=== PATIENT | male | born 1935 | race Caucasian/White ===

== ENCOUNTER 2024-01-12 13:55 | Outpatient (OUT) | payer MEDICARE, SELFPAY ==
--- NOTE | 2024-01-12 14:11 | XR_ITS ---
The [address] [address] Patient Name: ELMA NAYAK MRN: [id number] date: 1935 Sex: M Assigned Patient Location: [facility] Current Patient Location: Accession/Order Number: [id number] Exam Date: 01/12/2024 14:20 Report Date: 01/13/2024 06:43 At the request of: DAVID ZAPATA Procedure: XR knee RODOLFO 3V PROCEDURE: XR knee RODOLFO 3V HISTORY: Knee Osteoarthritis ; bilateral knee pain; no known injury COMPARISON: None. FINDINGS: BONES:Slight narrowing of the joint spaces bilaterally, slightly greater involving the medial joint spaces. Small periarticular degenerative osteophytes along the medial articular margin of the right knee. No fracture, dislocation, bone lesion. SOFT TISSUES:No visible soft tissue swelling. EFFUSION:Suspect small joint effusion on the right. OTHER: Negative. XR/XR knee RODOLFO 3V IMPRESSION: 1. No acute bone abnormality. 2. Mild degenerative changes bilaterally, right slightly greater than left. Electronically authenticated by: PIETRO PATEL Date: 01/13/2024 06:43
== END 2024-01-12 13:56 | disposition home or self-care (01) ==
LOC: RAD 14:00
PROVIDERS: PCP Family Medicine; Visit Provider Family Medicine
DX: M17.9 Osteoarthritis of knee, unspecified (principal)
CPT/HCPCS: 73562

== ENCOUNTER 2024-03-13 09:56 | Outpatient (OUT) | payer MEDICARE, SELFPAY ==
--- OUTSIDE RECORDS SUMMARY | 2024-03-13 10:06 | XMS_ITS | CCD ---
Author Organization [facility] Care Team Providers Care Manager Of Compensation Name Role Phone AVTAR, DR PALENCIA Admitting Unavailable VALONE, DR PALENCIA Attending Unavailable VALONE, DR PALENCIA Primary Care Unavailable VALONE, DR PALENCIA Consulting Unavailable REQUEST, DR ACEVES LISTED Admitting Unavaila ble REQUEST, DR ACEVES LISTED Attending Unavaila MAKENNA Almanza Consulting Unavailable REQUEST, DR ACEVES LISTED Admitting Unavaila ble REQUEST, DR ACEVES LISTED Attending Unavaila MAKENNA Almanza Consulting Unavailable VALONE, DR PALENCIA Admitting Unavailable VALONE, DR PALENCIA Attending Unavailable PIETRO COWART Attending Unavailable RUSPIETRO COBB Attending Unavailable Allergies Allergy Classification Reported Allergen(s) Allergy Type Date of Onset Reaction(s) Facility (2 sources) Penicillins Drug allergy (disorder) 05-02-2014 [facility] Repository (2 sources) Sulfonamides (Antibiotic) Drug allergy (disorder) 05-02-2014 [facility] Repository Problems Problem Classification Problem Date Documented Da te Episodic/Chronic Genitourinary symptoms and ill-defined conditions (4 sources) Other microscopic hematuria; Translations: [OTHER MICROSCOPIC HEMATURIA] Onset: 04-28-2021 Episodic Results Test Name Value Interpretation Reference Range Dolly Carlson 06-04-2021 BLADDER CANCER FISH FINDINGS Comment Normal [facility] Comment on above: Result Comment: Nega tive UroVysion Result Fluorescence in situ hybridization (FISH) of cells recovered from urine was performed using the [employer] UroVysion Kit. A minimum of twenty-five cells was examined, and an abnormal signal pattern was not detected, indicating a NEGATIVE result. The performance characteristics of this test have been validated by [employer]. A positive result is the detection of four or more cells with greater than two signals for at least two chromosomes (3, and/or 7, and/or 17) and/or twelve or more cells with no signal for chromosome 9. Probes: 3cen(D3Z1), 7cen(D7Z1), 9p21(p16), 17cen(D17Z1) Performed By: #### F ISHUV #### [facility] [address] [place] [address] Dr. Erin Bay CLINICAL DATA Comment Normal [facility] Comment on above: Result Comment: No c linical data specified Performed By: #### F ISHUV #### [facility] [address] [place] [address] Dr. Erin Bay CPT CODES Comment Normal [facility] Comment on above: Result Comment: 8812 0 Performed By: #### F ISHUV #### [facility] [address] [place] [address] Dr. Erin Bay ELECTRONICALLY SIGNED Comment Normal [facility] Comment on above: Result Comment: Ramon Hampton M.D. Performed By: #### F ISHUV #### [facility] [address] [place] [address] Dr. Erin Bay SPECIMEN DESCRIPTION Comment Normal [facility] Comment on above: Result Comment: Rece ived is 90ml of yellow, clear, preserved urine. Performed By: #### F ISHUV #### [facility] [address] [place] [address] Dr. Erin Bay Specimen type Nom (Spec) Comment Normal [facility] Comment on above: Result Comment: Unsp ecified Collection Method Performed By: #### F ISHUV #### [facility] [address] [place] [address] Dr. Erin Bay Encounters Encounter Date Encounter Type Care Provider Facility Start: 02-07-2024 End: 02-07-2024 ambulatory PIETRO COWART Not Available Start: 08-31-2023 End: 08-31-2023 ambulatory PIETRO COWART Not Available Start: 04-28-2021 End: 04-29-[address] TALHA NOVA Facility:H1 Start: 02-18-[address] TALHA NOVA [facility] ity:H1 Start: 11-06-2020 End: 11-07-[address] ACEVES LISTED REQUEST Facility:H1 Start: 10-06-2020 End: 10-07-[address] NONE LISTED REQUEST Facility:H1 Payers Date Payer Category Payer Self-pay 1958 Unknown [id number] 1935 Unknown [id number] 2.16.84 [id number] 1935 Unknown [id number] 2.16.84 [id number] 1935 Unknown [id number] 2.16.84 [id number] 1935 Unknown [id number] 2.16.840 .[id number] Unknown [id number] 2.16.84 [id number] Unknown [id number] 2.16.84 [id number] Summary Purpose Family History No Family History Records FoundNo Family History Records Found Advance Directives No Advanced Directives Records FoundNo Advanced Directives Records Found Additional Source Comments (unrecognized sect ion and content) No Status Records FoundNo Status Records Found INFORMATION SOURCE (unrecogn ized section and content) DATE CREATED AUTHOR 06/13/2021 [facility] DATE CREATED AUTHOR AUTHOR'S BRYAN SHEPARD 02/09/2024 [facility] d[facility] Specialists EPIC FOR RECORDS PERTAINING TO PATIENTS WHO ARE OR HAVE BEEN ENROLLED IN A CHEMICAL DEPENDENCY/SUBSTANCEABUSE PROGRAM, SOME INFORMATION MAY BE OMITTED. This clinical summary was aggregated from multiple sources. Caution should be exercised in using it in the provision of clinical care. This summary normalizes information from multiple sources, and as a consequence, information in this document may materially change the coding, format and clinical context of patient data. In addition, data may be omitted in some cases. CLINICAL DECISIONS SHOULD BE BASED ON THE PRIMARY CLINICAL RECORDS. [facility] [employer] provides no warranty or guarantee of the accuracy or completeness of information in this document.
[2024-03-13 10:21] LABS: Basophils Absolute Auto 0.1 10^3/uL (0.0-0.1); Basophils Percent Auto 0.9 % (0.2-2.0); Eosinophils Absolute Auto 0.2 10^3/uL (0.0-0.7); Hematocrit 44.7 % (42.0-54.0); Hemoglobin 14.9 g/dL (14.0-18.0); Immature Granulocytes Abs Auto 0.04 10^3/uL (0.00-0.03); Immature Granulocytes Pct Auto 0.6 % (0.0-0.5); Lymphocytes Absolute Auto 2.2 10^3/uL (1.2-3.8); Lymphocytes Percent Auto 31.3 % (20.5-60.0); Mean Corpuscular HGB Conc 33.3 g/dL (29.9-35.2); Mean Corpuscular Hemoglobin 31.7 pg (25.9-34.0); Mean Corpuscular Volume 95.1 fL (80.0-94.0); Mean Platelet Volume 8.3 fL (9.5-13.5); Monocytes Absolute Auto 0.9 10^3/uL (0.3-0.8); Monocytes Percent Auto 12.9 % (1.7-12.0); Neutrophils Absolute Auto 3.6 10^3/uL (1.4-6.5); Neutrophils Percent Auto 51.3 % (43.0-75.0); Platelet Count 275 10^3/uL (150-450); Red Cell Distribution Width 12.6 % (11.0-15.0); White Blood Count 6.9 10^3/uL (4.0-11.0)
[2024-03-13 10:47] LABS: Estimated Average Glucose 123 mg/dL; Glycohemoglobin A1C 5.9 % (4.5-6.2)
[2024-03-13 11:29] LABS: Alanine Aminotransferase 24 U/L (16-63); Albumin Level 3.5 g/dL (3.4-5.0); Alkaline Phosphatase 53 U/L (46-116); Anion Gap 12.9; Aspartate Amino Transferase 15 U/L (15-37); BUN Creatinine Ratio 32.8; Bilirubin Total 0.6 mg/dL (0.2-1.0); Calcium 8.6 mg/dL (8.5-10.1); Carbon Dioxide 30.6 mmol/L (21.0-32.0); Chloride 94 mmol/L (98-107); Chol HDL Ratio 2.6; Cholesterol 133 mg/dL (<=200); Estimated GFR (African America >60 (>=60); Estimated GFR (Non-African Ame >60 (>=60); Free T3 2.75 pg/mL (2.18-3.98); Globulin 3.5 g/dL; Glucose 123 mg/dL (74-106); HDL Cholesterol 51 mg/dL (40-60); Potassium 4.5 mmol/L (3.5-5.1); Sodium 133 mmol/L (136-145); Thyroid Stimulating Hormone 2.245 uIU/mL (0.358-3.740); Triglycerides 115 mg/dL (<=150)
[2024-03-13 11:31] LABS: Free T4 0.92 ng/dL (0.76-1.46)
[2024-03-14 04:08] LABS: PSA, Free 0.06 ng/mL; Prostate Specific Ag 0.3 ng/mL (0.0-4.0)
== END 2024-03-13 09:57 | disposition home or self-care (01) ==
LOC: LAB 09:57
PROVIDERS: PCP Family Medicine; Visit Provider Family Medicine
DX: Z00.00 Encounter for general adult medical examination without abnormal findings (principal); E78.5 Hyperlipidemia, unspecified; Z12.11 Encounter for screening for malignant neoplasm of colon; R53.83 Other fatigue; I10 Essential (primary) hypertension; Z79.899 Other long term (current) drug therapy; Z12.5 Encounter for screening for malignant neoplasm of prostate; D64.9 Anemia, unspecified; R73.09 Other abnormal glucose
CPT/HCPCS: 36415; 80053; 80061; 83036; 84153; 84154; 84439; 84443; 84481; 85025

== ENCOUNTER 2024-03-16 16:30 | Outpatient (OUT) | payer MEDICARE, SELFPAY ==
--- OUTSIDE RECORDS SUMMARY | 2024-03-16 16:34 | XMS_ITS ---
Patient Summarization (C-CDA 2.1 CCD) Created on: March 16, 2024 Harley SMART : 1935 Sex: Male Author Organization Sample organization Care Team Providers Care Aircraft Dispatcher Name Role Phone AVTAR, DR PALENCIA Admitting Unavailable VALONE, DR PALENCIA Attending Unavailable VALONE, DR PALENCIA Primary Care Unavailable VALONE, DR PALENCIA Consulting Unavailable REQUEST, DR ACEVES LISTED Admitting Unavaila ble REQUEST, DR ACEVES LISTED Attending Unavaila MAKENNA Almanza Consulting Unavailable REQUEST, DR ACEVES LISTED Admitting Unavaila ble REQUEST, NONE LISTED Attending Unavaila MAKENNA Almanza Consulting Unavailable VALONE, DR PALENCIA Admitting Unavailable VALONE, DR PALENCIA Attending Unavailable RUSHER, PIETRO Gross Attending Unavailable RUSHER, PIETRO Gross Attending Unavailable Allergies Allergy Classification Reported Allergen(s) Allergy Type Date of Onset Reaction(s) Facility (2 sources) Penicillins Drug allergy (disorder) 05-02-2014 The [facility] Repository (2 sources) Sulfonamides (Antibiotic) Drug allergy (disorder) 05-02-2014 [facility] Repository Encounters Encounter Date Encounter Type Care Provider Facility Start: 02-07-2024 End: 02-07-2024 ambulatory PIETRO COWART Not Available Start: 08-31-2023 End: 08-31-2023 ambulatory PIETRO COWART Not Available Start: 04-28-2021 End: 04-29-[address] TALHA NOVA Facility:H1 Start: 02-18-[address] TALHA NOVA Facil ity:H1 Start: 11-06-2020 End: 11-07-2020 ambulatory NONE LISTED REQUEST Facility:H1 Start: 10-06-2020 End: 10-07-[address] NONE LISTED REQUEST Facility:H1 Payers Date Payer Category Payer Self-pay 1958 Unknown [id number] 1935 Unknown [id number] 2.16.84 [id number] 1935 Unknown [id number] 2.16.84 [id number] 1935 Unknown [id number] 2.16.84 [id number] 1935 Unknown [id number] 2.16.840 .[id number] Unknown [id number] 2.16.84 [id number] Unknown [id number] 2.16.84 [id number] Problems Problem Classification Problem Date Documented Da te Episodic/Chronic Genitourinary symptoms and ill-defined conditions (4 sources) Other microscopic hematuria; Translations: [OTHER MICROSCOPIC HEMATURIA] Onset: 04-28-2021 Episodic Results Test Name Value Interpretation Reference Range Dolly Carlson 06-04-2021 BLADDER CANCER FISH FINDINGS Comment Normal [facility] Comment on above: Result Comment: Nega tive UroVysion Result Fluorescence in situ hybridization (FISH) of cells recovered from urine was performed using the [employer] UroVysion Kit. A minimum of twenty-five cells was examined, and an abnormal signal pattern was not detected, indicating a NEGATIVE result. The performance characteristics of this test have been validated by [employer]. A positive result is the detection of four or more cells with greater than two signals for at least two chromosomes (3, and/or 7, and/or 17) and/or twelve or more cells with no signal for chromosome 9. Probes: 3cen(D3Z1), 7cen(D7Z1), 9p21(p16), 17cen(D17Z1) Performed By: #### F ISHUV #### [facility] [address] [place] [address] Dr. Erin Bay CLINICAL DATA Comment Normal [facility] Comment on above: Result Comment: No c linical data specified Performed By: #### F ISHUV #### [facility] [address] [place], [place] [address] Dr. Erin Bay CPT CODES Comment [facility] Comment on above: Result Comment: 8812 0 Performed By: #### F ISHUV #### [facility] [address] [place] [address] [address] Erin Bay ELECTRONICALLY SIGNED Comment Normal [facility] Comment on above: Result Comment: Ramon Hampton M.D. Performed By: #### F ISHUV #### [facility] [address] [address] [address] Erin Bay SPECIMEN DESCRIPTION Comment Normal [facility] Comment on above: Result Comment: Rece ived is 90ml of yellow, clear, preserved urine. Performed By: #### F ISHUV #### [facility] [address] [address] [address] Erin Bay Specimen type Nom (Spec) Comment [facility] Comment on above: Result Comment: Unsp ecified Collection Method Performed By: #### F ISHUV #### [facility] [address] [place] [address] Dr. Erin Bay Summary Purpose Family History No Family History Records FoundNo Family History Records Found Advance Directives No Advanced Directives Records FoundNo Advanced Directives Records Found Additional Source Comments (unrecognized sect ion and content) No Status Records FoundNo Status Records Found INFORMATION SOURCE (unrecogn ized section and content) DATE CREATED AUTHOR 06/13/2021 [facility] DATE CREATED AUTHOR AUTHOR'S ORGANIZ ATION 02/09/2024 [facility] dical Specialists EPIC FOR RECORDS [...] BE BASED ON THE PRIMARY CLINICAL RECORDS. [employer] provides no warranty or guarantee of the accuracy or completeness of information in this document.
[2024-03-17 11:04] LABS: Internal Control Within Normal Limits; Occult Blood Negative
== END 2024-03-16 16:31 | disposition home or self-care (01) ==
LOC: LAB 16:30
PROVIDERS: PCP Family Medicine; Visit Provider Family Medicine
DX: E78.5 Hyperlipidemia, unspecified (principal); Z12.11 Encounter for screening for malignant neoplasm of colon; R53.83 Other fatigue; I10 Essential (primary) hypertension; Z79.899 Other long term (current) drug therapy; Z12.5 Encounter for screening for malignant neoplasm of prostate
CPT/HCPCS: G0328

== ENCOUNTER 2024-06-05 12:33 | Outpatient (REF) | payer MEDICARE, SELFPAY ==
--- OUTSIDE RECORDS SUMMARY | 2024-06-05 12:43 | XMS_ITS | CCD ---
Author Organization [facility] Care Team Providers Care Project Manager Retail Name Role Phone AVTAR, DR PALENCIA Admitting [...] sources) Penicillins Drug allergy (disorder) 05-02-2014 The [facility] Repository (2 sources) Sulfonamides (Antibiotic) Drug allergy (disorder) 05-02-2014 [facility] Repository Problems Problem Classification Problem Date Documented Da te Episodic/Chronic Genitourinary symptoms and ill-defined conditions (4 sources) Other microscopic hematuria; Translations: [OTHER MICROSCOPIC HEMATURIA] Onset: 04-28-2021 Episodic Results Test Name Value Interpretation Reference Range Dolly Carlson 06-04-2021 BLADDER CANCER FISH FINDINGS Comment Normal [facility] Comment on above: Result Comment: Nega tive UroVysion Result Fluorescence in situ hybridization (FISH) of cells recovered from urine was performed using the [employer] UroVysion Kit. A minimum of twenty-five cells was examined, and an abnormal signal pattern was not detected, indicating a NEGATIVE result. The performance characteristics of this test have been validated by [employer]. A positive result is the detection of four or more cells with greater than two signals for at least two chromosomes (3, and/or 7, and/or 17) and/or twelve or more cells with no signal for chromosome 9. Probes: 3cen(D3Z1), 7cen(D7Z1), 9p21(p16), 17cen(D17Z1) Performed By: #### F ISHUV #### [facility] [address] [place] [address] Dr. Erin Bay CLINICAL DATA Comment Normal [facility] Comment on above: Result Comment: No c linical data specified Performed By: #### F ISHUV #### [facility] [address] [place] [address] Dr. Erin Bay CPT CODES Comment Normal [facility] Comment on above: Result Comment: 8812 0 Performed By: #### F ISHUV #### [facility] [address] [place] [address] Dr. Erin Bay ELECTRONICALLY SIGNED Comment Normal [facility] Comment on above: Result Comment: Ramon Hampton M.D. Performed By: #### F ISHUV #### [facility] [address] [place] [address] Dr. Erin Bay SPECIMEN DESCRIPTION Comment Normal [facility] Comment on above: Result Comment: Rece ived is 90ml of yellow, clear, preserved urine. Performed By: #### F ISHUV #### [facility] [address] [place] [address] Dr. Erin Bay Specimen type Nom (Spec) Comment Normal [facility] Comment on above: Result Comment: Unsp ecified Collection Method Performed By: #### F ISHUV #### [facility] [address] [place] [address] Dr. Erin Bay Encounters Encounter Date Encounter Type Care Provider Facility Start: 02-07-2024 End: 02-07-2024 ambulatory PIETRO COWART Not Available Start: 08-31-2023 End: 08-31-2023 ambulatory PIETRO COWART Not Available Start: 04-28-2021 End: 04-29-[address] TALHA NOVA Facility:H1 Start: 02-18-[address] TALHA NOVA [facility] ity:H1 Start: 11-06-2020 End: 11-07-[address] ACEVES LISTED REQUEST Facility:H1 Start: 10-06-2020 End: 10-07-[address] NONE LISTED REQUEST Facility:H1 Payers Date Payer Category Payer Self-pay 1958 Unknown [id number] 1935 Unknown [id number] 2.16.84 [id number] 1935 Unknown [id number] 2.16.84 [id number] 1935 Unknown [id number] 2.16.84 [id number] 1935 Unknown [id number] 2.16.840 .[id number] Unknown [id number] 2.16.84 [id number] Unknown [id number] 2.16.84 [id number] Summary Purpose Family History No Family History Records FoundNo Family History Records Found Advance Directives No Advanced Directives Records FoundNo Advanced Directives Records Found Additional Source Comments (unrecognized sect ion and content) No Status Records FoundNo Status Records Found INFORMATION SOURCE (unrecogn ized section and content) DATE CREATED AUTHOR 06/13/2021 [facility] DATE CREATED AUTHOR AUTHOR'S BRYAN SHEPARD 02/09/2024 [facility] dical Specialists EPIC FOR RECORDS PERTAINING TO [...] BE BASED ON THE PRIMARY CLINICAL RECORDS. [facility] [employer] provides no warranty or guarantee of the accuracy or completeness of information in this document.
[2024-06-05 13:02] LABS: Internal Control Within Normal Limits; SARS-CoV-2 Ag NEGATIVE (NEGATIVE)
== END 2024-06-05 12:34 | disposition home or self-care (01) ==
LOC: LAB 12:33
PROVIDERS: PCP Family Medicine; Visit Provider Family Medicine
DX: J01.90 Acute sinusitis, unspecified (principal)
CPT/HCPCS: 87811

== ENCOUNTER 2024-08-13 15:35 | Outpatient (OUT) | payer MEDICARE, SELFPAY ==
--- NOTE | 2024-08-13 | XR_ITS ---
The [address] [address] Patient Name: ELMA NAAYK MRN: [id number] date: 1935 Sex: M Assigned Patient Location: Current Patient Location: Accession/Order Number: [id number] Exam Date: 08/13/2024 15:38 Report Date: 08/16/2024 09:24 At the request of: ARASELI SEVILLA Procedure: XR shoulder RT min 2V PROCEDURE: XR shoulder RT min 2V HISTORY: RIGHT SHOULDER PAIN COMPARISON: None. FINDINGS: BONES:Complete loss of the glenohumeral joint space with subchondral sclerosis, innumerable small subchondral cysts, and degenerative osteophytes projecting from inferior articular margins. Inferior and superior projecting degenerative osteophytes at the margins of the acromioclavicular joint. SOFT TISSUES:No visible soft tissue swelling. EFFUSION:None visible. OTHER: Negative. XR/XR shoulder RT min 2V IMPRESSION: 1. No acute bone abnormality. 2. 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 Electronically authenticated by: PIETRO PATEL Date: 08/16/2024 09:24
--- OUTSIDE RECORDS SUMMARY | 2024-08-13 15:45 | XMS_ITS | CCD ---
Author Organization [facility] Care Team Providers Care Technology Trainer Name Role Phone AVTAR, DR PALENCIA Admitting [...] sources) Penicillins Drug allergy (disorder) 05-02-2014 The [facility] Repository (2 sources) Sulfonamides (Antibiotic) Drug allergy (disorder) 05-02-2014 [facility] Repository Problems Problem Classification Problem Date Documented Da te Episodic/Chronic Genitourinary symptoms and ill-defined conditions (4 sources) Other microscopic hematuria; Translations: [OTHER MICROSCOPIC HEMATURIA] Onset: 04-28-2021 Episodic Results Test Name Value Interpretation Reference Range Dolly Carlson 06-04-2021 BLADDER CANCER FISH FINDINGS Comment Normal [facility] Comment on above: Result Comment: Nega tive UroVysion Result Fluorescence in situ hybridization (FISH) of cells recovered from urine was performed using the [employer] UroVysion Kit. A minimum of twenty-five cells was examined, and an abnormal signal pattern was not detected, indicating a NEGATIVE result. The performance characteristics of this test have been validated by [employer]. A positive result is the detection of four or more cells with greater than two signals for at least two chromosomes (3, and/or 7, and/or 17) and/or twelve or more cells with no signal for chromosome 9. Probes: 3cen(D3Z1), 7cen(D7Z1), 9p21(p16), 17cen(D17Z1) Performed By: #### F ISHUV #### [facility] [address] [place] [address] Dr. Erin Bay CLINICAL DATA Comment Normal [facility] Comment on above: Result Comment: No c linical data specified Performed By: #### F ISHUV #### [facility] [address] [place] [address] Dr. Erin Bay CPT CODES Comment Normal [facility] Comment on above: Result Comment: 8812 0 Performed By: #### F ISHUV #### [facility] [address] [place] [address] Dr. Erin Bay ELECTRONICALLY SIGNED Comment Normal [facility] Comment on above: Result Comment: Ramon Hampton M.D. Performed By: #### F ISHUV #### [facility] [address] [place] [address] Dr. Erin Bay SPECIMEN DESCRIPTION Comment Normal [facility] Comment on above: Result Comment: Rece ived is 90ml of yellow, clear, preserved urine. Performed By: #### F ISHUV #### [facility] [address] [place] [address] Dr. Erin Bay Specimen type Nom (Spec) Comment Normal [facility] Comment on above: Result Comment: Unsp ecified Collection Method Performed By: #### F ISHUV #### [facility] [address] [place] [address] Dr. Erin Bay Encounters Encounter Date Encounter Type Care Provider Facility Start: 02-07-2024 End: 02-07-2024 ambulatory PIETRO COWART Not Available Start: 08-31-2023 End: 08-31-2023 ambulatory PIETRO COWART Not Available Start: 04-28-2021 End: 04-29-[address] TALHA NOVA Facility:H1 Start: 02-18-[address] TALHA NOVA [facility] ity:H1 Start: 11-06-2020 End: 11-07-[address] ACEVES LISTED REQUEST Facility:H1 Start: 10-06-2020 End: 10-07-[address] NONE LISTED REQUEST Facility:H1 Payers Date Payer Category Payer Self-pay 1958 Unknown [id number] 1935 Unknown [id number] 2.16.84 [id number] 1935 Unknown [id number] 2.16.84 [id number] 1935 Unknown [id number] 2.16.84 [id number] 1935 Unknown [id number] 2.16.840 .[id number] Unknown [id number] 2.16.84 [id number] Unknown [id number] 2.16.84 [id number] Summary Purpose Family History No Family History Records FoundNo Family History Records Found Advance Directives No Advanced Directives Records FoundNo Advanced Directives Records Found Additional Source Comments (unrecognized sect ion and content) No Status Records FoundNo Status Records Found INFORMATION SOURCE (unrecogn ized section and content) DATE CREATED AUTHOR 06/13/2021 [facility] DATE CREATED AUTHOR AUTHOR'S BRYAN SHEPARD 02/09/2024 [facility] Specialists EPIC FOR RECORDS PERTAINING TO [...] BE BASED ON THE PRIMARY CLINICAL RECORDS. [facility] [employer] provides no warranty or guarantee of the accuracy or completeness of information in this document.
== END 2024-08-13 15:36 | disposition home or self-care (01) ==
LOC: EC 15:37
PROVIDERS: PCP Family Medicine; Visit Provider Student in an Organized Health Care Education/Training Program
DX: M25.511 Pain in right shoulder (principal)
CPT/HCPCS: 73030

== ENCOUNTER 2024-09-17 15:10 | Outpatient (OUT) | payer MEDICARE, SELFPAY ==
--- NOTE | 2024-09-17 15:30 | XR_ITS ---
The [address] [address] Patient Name: ELMA NAYAK MRN: [id number] date: 1935 Sex: M Assigned Patient Location: [facility] Current Patient Location: Accession/Order Number: [id number] Exam Date: 09/17/2024 15:25 Report Date: 09/18/2024 07:57 At the request of: ELTON DEL VALLE Procedure: XR chest 2V EXAMINATION: XR chest 2V HISTORY: Bronchitis COMPARISON: No relevant comparison available. TECHNIQUE: PA and lateral FINDINGS: LUNGS: Low lung volumes. Minimal left basilar infiltrate VASCULATURE: No increased pulmonary vasculature. PLEURA: No pneumothorax, effusion, or pleural thickening. CARDIAC: No cardiomegaly or cardiac silhouette abnormality. MEDIASTINUM: No visible mass or adenopathy. BONES: Severe bilateral glenohumeral joint osteoarthritis OTHER: Negative. XR/XR chest 2V IMPRESSION: Minimal left basilar infiltrate Electronically authenticated by: SHILO ORTEGA Date: 09/18/2024 07:57
== END 2024-09-17 15:11 | disposition home or self-care (01) ==
LOC: RAD 15:12
PROVIDERS: PCP Family Medicine; Visit Provider Nurse Practitioner Family
DX: J40 Bronchitis, not specified as acute or chronic (principal)
CPT/HCPCS: 71046

== ENCOUNTER 2024-10-29 14:00 | Outpatient (OUT) | payer MEDICARE, SELFPAY ==
--- NOTE | 2024-10-29 14:22 | XR_ITS ---
The [address] [address] Patient Name: ELMA NAYAK MRN: [id number] date: 1935 Sex: M Assigned Patient Location: LAB Current Patient Location: LAB Accession/Order Number: [id number] Exam Date: 10/29/2024 14:25 Report Date: 10/29/2024 15:45 At the request of: DAVID ZAPATA Procedure: XR chest 2V PROCEDURE: XR chest 2V DATE: 10/29/2024 2:25 PM EST COMPARISONS: 09/17/2024 CLINICAL INDICATION: 88 years Male Acute Bronchitis J20.9 FINDINGS: The left hemidiaphragm is elevated as before. There is associated left basilar atelectasis. The lungs are otherwise clear. Prominent shoulder degenerative changes are identified, stable There is no evidence of pleural effusion or pneumothorax. XR/XR chest 2V IMPRESSION: Stable chest. Electronically authenticated by: SHO BURKS Date: 10/29/2024 15:45
--- OUTSIDE RECORDS SUMMARY | 2024-10-29 14:24 | XMS_ITS | CCD ---
Author Organization [facility] Care Team Providers Care Out Of Town Collection Clerk Name Role Phone AVTAR, DR PALENCIA Admitting Unavailable VALONE, DR PALENCIA Attending Unavailable VALONE, DR PALENCIA Primary Care Unavailable VALONE, DR PALENCIA Consulting Unavailable REQUEST, DR ACEVES LISTED Admitting Unavaila ble REQUEST, DR ACEVES LISTED Attending Unavaila MAKENNA Almanza Consulting Unavailable REQUEST, DR CAEVES LISTED Admitting Unavaila ble REQUEST, DR ACEVES LISTED Attending Unavaila MAKENNA Almanza Consulting Unavailable VALONE, DR PALENCIA Admitting Unavailable VALONE, DR PALENCIA Attending Unavailable PIETRO COWART Attending Unavailable RUSPIETRO COBB Attending Unavailable Allergies Allergy Classification Reported Allergen(s) Allergy Type Date of Onset Reaction(s) Facility (2 sources) Penicillins Drug allergy (disorder) 05-02-2014 [facility] Repository (2 sources) Sulfonamides (Antibiotic) Drug allergy (disorder) 05-02-2014 [facility] Repository Problems Problem Classification Problem Date Documented Da te Episodic/Chronic Genitourinary symptoms and ill-defined conditions (4 sources) Other microscopic hematuria; Translations: [OTHER MICROSCOPIC HEMATURIA] Onset: 04-28-2021 Episodic Results Test Name Value Interpretation Reference Range Dolly Carlson 06-04-2021 BLADDER CANCER FISH FINDINGS Comment Normal [facility] Comment on above: Result Comment: Nega tive UroVysion Result Fluorescence in situ hybridization (FISH) of cells recovered from urine was performed using the [employer] UroVysion Kit. A minimum of twenty-five cells was examined, and an abnormal signal pattern was not detected, indicating a NEGATIVE result. The performance characteristics of this test have been validated by [employer]. A positive result is the detection of four or more cells with greater than two signals for at least two chromosomes (3, and/or 7, and/or 17) and/or twelve or more cells with no signal for chromosome 9. Probes: 3cen(D3Z1), 7cen(D7Z1), 9p21(p16), 17cen(D17Z1) Performed By: #### F ISHUV #### [facility] [address] [place] [address] Dr. Erin Bay CLINICAL DATA Comment Normal [facility] Comment on above: Result Comment: No c linical data specified Performed By: #### F ISHUV #### [facility] [address] [place] [address] Dr. Erin Bay CPT CODES Comment Normal [facility] Comment on above: Result Comment: 8812 0 Performed By: #### F ISHUV #### [facility] [address] [place] [address] Dr. Erin Bay ELECTRONICALLY SIGNED Comment Normal [facility] Comment on above: Result Comment: Ramon Hampton M.D. Performed By: #### F ISHUV #### [facility] [address] [place] [address] Dr. Erin Bay SPECIMEN DESCRIPTION Comment Normal [facility] Comment on above: Result Comment: Rece ived is 90ml of yellow, clear, preserved urine. Performed By: #### F ISHUV #### [facility] [address] [place] [address] Dr. Erin Bay Specimen type Nom (Spec) Comment Normal [facility] Comment on above: Result Comment: Unsp ecified Collection Method Performed By: #### F ISHUV #### [facility] [address] [place] [address] Dr. Erin Bay Encounters Encounter Date Encounter Type Care Provider Facility Start: 02-07-2024 End: 02-07-2024 ambulatory PIETRO COWART Not Available Start: 08-31-2023 End: 08-31-2023 ambulatory PIETRO COWART Not Available Start: 04-28-2021 End: 04-29-[address] TALHA NOVA Facility:H1 Start: 02-18-[address] TALHA NOVA [facility] ity:H1 Start: 11-06-2020 End: 11-07-[address] ACEVES LISTED REQUEST Facility:H1 Start: 10-06-2020 End: 10-07-[address] NONE LISTED REQUEST Facility:H1 Payers Date Payer Category Payer Self-pay 1958 Unknown [id number] 1935 Unknown [id number] 2.16.84 [id number] 1935 Unknown [id number] 2.16.84 [id number] 1936 Unknown [id number] 2.16.84 [id number] 1936 Unknown [id number] 2.16.840 .[id number] Unknown [id number] 2.16.84 [id number] Unknown [id number] 2.16.84 [id number] Summary Purpose Family History No Family History Records FoundNo Family History Records Found Advance Directives No Advanced Directives Records FoundNo Advanced Directives Records Found Additional Source Comments (unrecognized sect ion and content) No Status Records FoundNo Status Records Found INFORMATION SOURCE (unrecogn ized section and content) DATE CREATED AUTHOR 06/13/2021 [facility] DATE CREATED AUTHOR AUTHOR'S BRYAN SHEPARD 02/09/2024 [facility] EPIC FOR RECORDS PERTAINING [...] BE BASED ON THE PRIMARY CLINICAL RECORDS. [facility] [email or web address] provides no warranty or guarantee of the accuracy or completeness of information in this document.
[2024-10-29 14:48] LABS: Basophils Percent Auto 0.5 % (0.2-2.0); Eosinophils Absolute Auto 0.3 10^3/uL (0.0-0.7); Eosinophils Percent Auto 4.2 % (0.9-7.0); Hematocrit 46.3 % (42.0-54.0); Hemoglobin 15.9 g/dL (14.0-18.0); Immature Granulocytes Abs Auto 0.07 10^3/uL (0.00-0.03); Immature Granulocytes Pct Auto 0.9 % (0.0-0.5); Lymphocytes Percent Auto 24.3 % (20.5-60.0); Mean Corpuscular HGB Conc 34.3 g/dL (29.9-35.2); Mean Corpuscular Hemoglobin 32.3 pg (25.9-34.0); Mean Corpuscular Volume 94.1 fL (80.0-94.0); Monocytes Percent Auto 12.3 % (1.7-12.0); Neutrophils Absolute Auto 4.7 10^3/uL (1.4-6.5); Neutrophils Percent Auto 57.8 % (43.0-75.0); Platelet Count 303 10^3/uL (150-450); Red Blood Count 4.92 10^6/uL (4.70-6.10); Red Cell Distribution Width 13.1 % (11.0-15.0); White Blood Count 8.2 10^3/uL (4.0-11.0)
[2024-10-29 15:42] LABS: Alanine Aminotransferase 22 U/L (16-63); Albumin Globulin Ratio 1.1; Albumin Level 3.6 g/dL (3.4-5.0); Alkaline Phosphatase 59 U/L (46-116); Aspartate Amino Transferase 17 U/L (15-37); BUN Creatinine Ratio 24.2; Bilirubin Total 0.4 mg/dL (0.2-1.0); Calcium 8.5 mg/dL (8.5-10.1); Carbon Dioxide 31.7 mmol/L (21.0-32.0); Chloride 93 mmol/L (98-107); Estimated GFR (African America >60 (>=60 mL/min/1.73m^2); Estimated GFR (Non-African Ame >60 (>=60 mL/min/1.73m^2); Globulin 3.4 g/dL; Glucose 124 mg/dL (74-106); Potassium 4.7 mmol/L (3.5-5.1); Sodium 132 mmol/L (136-145)
== END 2024-10-29 14:01 | disposition home or self-care (01) ==
LOC: LAB 14:02
PROVIDERS: PCP Family Medicine; Visit Provider Family Medicine
DX: J20.9 Acute bronchitis, unspecified (principal); I11.0 Hypertensive heart disease with heart failure; I50.30 Unspecified diastolic (congestive) heart failure
CPT/HCPCS: 36415; 71046; 80053; 83880; 85025

== ENCOUNTER 2024-10-30 15:52 | Outpatient (REF) | payer MEDICARE, SELFPAY ==
--- OUTSIDE RECORDS SUMMARY | 2024-10-30 16:12 | XMS_ITS | CCD ---
Author Organization [facility] Care Team Providers Care Shingle Grader Name Role Phone AVTAR, DR PALENCIA Admitting Unavailable VALONE, DR PALENCIA Attending Unavailable VALONE, DR PALENCIA Primary Care Unavailable VALONE, DR PALENCIA Consulting Unavailable REQUEST, DR ACEVES LISTED Admitting Unavaila ble REQUEST, DR ACEVES LISTED Attending Unavaila MAKENNA Almanza Consulting Unavailable REQUEST, DR ACEVES LISTED Admitting Unavaila ble REQUEST, DR ACEVES LISTED Attending Unavaila MAEKNNA Almanza Consulting Unavailable VALONE, DR PALENCIA Admitting Unavailable VALONE, DR PALENCIA Attending Unavailable PIETRO COWART Attending Unavailable RUSPIETRO COBB Attending Unavailable Allergies Allergy Classification Reported Allergen(s) Allergy Type Date of Onset Reaction(s) Facility (2 sources) Penicillins Drug allergy (disorder) 05-02-2014 [facility] Repository (2 sources) Sulfonamides (Antibiotic) Drug allergy (disorder) 05-02-2014 [facility] Repository Problems Problem Classification Problem Date Documented Da te Episodic/Chronic Genitourinary symptoms and ill-defined conditions (4 sources) Other microscopic hematuria; Translations: [OTHER MICROSCOPIC HEMATURIA] Onset: 04-28-2021 Episodic Results Test Name Value Interpretation Reference Range Dolly Carlson 06-04-2021 BLADDER CANCER FISH FINDINGS Comment Normal [facility] Comment on above: Result Comment: Nega tive UroVysion Result Fluorescence in situ hybridization (FISH) of cells recovered from urine was performed using the [employer] UroVysion Kit. A minimum of twenty-five cells was examined, and an abnormal signal pattern was not detected, indicating a NEGATIVE result. The performance characteristics of this test have been validated by [employer]. A positive result is the detection of four or more cells with greater than two signals for at least two chromosomes (3, and/or 7, and/or 17) and/or twelve or more cells with no signal for chromosome 9. Probes: 3cen(D3Z1), 7cen(D7Z1), 9p21(p16), 17cen(D17Z1) Performed By: #### F ISHUV #### [facility] [address] [place] [address] Dr. Erin Bay CLINICAL DATA Comment Normal [facility] Comment on above: Result Comment: No c linical data specified Performed By: #### F ISHUV #### [facility] [address] [place] [address] Dr. Erin Bay CPT CODES Comment Normal [facility] Comment on above: Result Comment: 8812 0 Performed By: #### F ISHUV #### [facility] [address] [place] [address] Dr. Erin Bay ELECTRONICALLY SIGNED Comment Normal [facility] Comment on above: Result Comment: Ramon Hampton M.D. Performed By: #### F ISHUV #### [facility] [address] [place] [address] Dr. Erin Bay SPECIMEN DESCRIPTION Comment Normal [facility] Comment on above: Result Comment: Rece ived is 90ml of yellow, clear, preserved urine. Performed By: #### F ISHUV #### [facility] [address] [place] [address] Dr. Erin Bay Specimen type Nom (Spec) Comment Normal [facility] Comment on above: Result Comment: Unsp ecified Collection Method Performed By: #### F ISHUV #### [facility] [address] [place] [address] Dr. Erin Bay Encounters Encounter Date Encounter Type Care Provider Facility Start: 02-07-2024 End: 02-07-2024 ambulatory PIETRO COWART Not Available Start: 08-31-2023 End: 08-31-2023 ambulatory PIETRO COWART Not Available Start: 04-28-2021 End: 04-29-[address] TALHA NOVA Facility:H1 Start: 02-18-[address] TALHA NOVA [facility] ity:H1 Start: 11-06-2020 End: 11-07-[address] ACEVES LISTED REQUEST Facility:H1 Start: 10-06-2020 End: 10-07-[address] NONE LISTED REQUEST Facility:H1 Payers Date Payer Category Payer Self-pay 1958 Unknown [id number] 1935 Unknown [id number] 2.16.84 [id number] 1936 Unknown [id number] 2.16.84 [id number] 1936 Unknown [id number] 2.16.84 [id number] 1936 Unknown [id number] 2.16.840 .[id number] Unknown [id number] 2.16.84 [id number] Unknown [id number] 2.16.84 [id number] Summary Purpose Family History No Family History Records FoundNo Family History Records Found Advance Directives No Advanced Directives Records FoundNo Advanced Directives Records Found Additional Source Comments (unrecognized sect ion and content) No Status Records FoundNo Status Records Found INFORMATION SOURCE (unrecogn ized section and content) DATE CREATED AUTHOR 06/13/2021 [facility] DATE CREATED AUTHOR AUTHOR'S BRYAN SHEPARD 02/09/2024 [facility] d[facility] Specialists EPIC FOR RECORDS PERTAINING TO [...] BE BASED ON THE PRIMARY CLINICAL RECORDS. [facility] [employer] provides no warranty or guarantee of the accuracy or completeness of information in this document.
== END 2024-10-30 15:53 | disposition home or self-care (01) ==
LOC: LAB 15:52
PROVIDERS: PCP Family Medicine; Visit Provider Family Medicine
DX: J20.9 Acute bronchitis, unspecified (principal); I50.30 Unspecified diastolic (congestive) heart failure; I11.0 Hypertensive heart disease with heart failure
CPT/HCPCS: 87070

== ENCOUNTER 2024-10-31 12:57 | Outpatient (OUT) | payer MEDICARE, SELFPAY ==
--- NOTE | 2024-10-31 13:00 | CT_ITS ---
[address] [address] Patient Name: ELMA NAYAK MRN: [id number] date: 1935 Sex: M Assigned Patient Location: CT Current Patient Location: Accession/Order Number: [id number] Exam Date: 10/31/2024 13:10 Report Date: 11/01/2024 08:16 At the request of: LU JUDD Procedure: CT chest w con EXAMINATION: CT chest w con HISTORY: Shortness Of Breath COMPARISON: XR chest 10/29/2024 TECHNIQUE: Multi-planar CT images were obtained without and/or with IV contrast as indicated by examination type. Axial, Coronal, and Sagittal images. Dose reduction techniques were achieved by using automated exposure control and/or adjustment of mA and/or kV according to patient size and/or use of iterative reconstruction technique. FINDINGS: LUNGS: Mild chronic interstitial changes. Trace amount of atelectasis within left lung base due to elevated hemidiaphragm. PLEURA: Scattered thin chronic pleural plaques; some are calcified and some are noncalcified. No pleural effusion or pneumothorax. VASCULATURE: No abnormality. HEIDI: No mass or adenopathy. MEDIASTINUM: No mass or adenopathy. CARDIAC: Cardiomegaly. AORTA: No aneurysm or dissection. CHEST WALL: No mass or axillary adenopathy. BONES: Marked degenerative changes of the glenohumeral joints bilaterally. A couple old healed rib fractures. LIMITED ABDOMEN: Hypodensity within anterior left hepatic lobe favoring a benign cyst. Limited images of the upper abdomen. OTHER: Negative. CT/CT chest w con IMPRESSION: 1. Mild chronic interstitial changes. No acute abnormality to account for patient's symptoms. 2. Scattered chronic pleural plaques. No suspicious findings. 3. Cardiomegaly. No pericardial effusion. 4. Marked degenerative changes of the shoulders bilaterally. Electronically authenticated by: PIETRO PATEL Date: 11/01/2024 08:16
--- OUTSIDE RECORDS SUMMARY | 2024-10-31 13:14 | XMS_ITS | CCD ---
Author Organization [facility] Care Team Providers Care Barrel Rifler Operator Name Role Phone AVTAR, DR PALENCIA Admitting [...] sources) Penicillins Drug allergy (disorder) 05-02-2014 [facility] Repository (2 sources) Sulfonamides (Antibiotic) Drug allergy (disorder) 05-02-2014 [facility] Repository Problems Problem Classification Problem Date Documented Da te Episodic/Chronic Genitourinary symptoms and ill-defined conditions (4 sources) Other microscopic hematuria; Translations: [OTHER MICROSCOPIC HEMATURIA] Onset: 04-28-2021 Episodic Results Test Name Value Interpretation Reference Range Dolly Carlson 06-04-2021 BLADDER CANCER FISH FINDINGS Comment Normal [facility] Comment on above: Result Comment: Nega tive UroVysion Result Fluorescence in situ hybridization (FISH) of cells recovered from urine was performed using the [employer] UroVysion Kit. A minimum of twenty-five cells was examined, and an abnormal signal pattern was not detected, indicating a NEGATIVE result. The performance characteristics of this test have been validated by [employer]. A positive result is the detection of four or more cells with greater than two signals for at least two chromosomes (3, and/or 7, and/or 17) and/or twelve or more cells with no signal for chromosome 9. Probes: 3cen(D3Z1), 7cen(D7Z1), 9p21(p16), 17cen(D17Z1) Performed By: #### F ISHUV #### [facility] [address] [place] [address] Dr. Erin Bay CLINICAL DATA Comment Normal [facility] Comment on above: Result Comment: No c linical data specified Performed By: #### F ISHUV #### [facility] [address] [place] [address] Dr. Erin Bay CPT CODES Comment Normal [facility] Comment on above: Result Comment: 8812 0 Performed By: #### F ISHUV #### [facility] [address] [place] [address] Dr. Erin Bay ELECTRONICALLY SIGNED Comment Normal [facility] Comment on above: Result Comment: Ramon Hampton M.D. Performed By: #### F ISHUV #### [facility] [address] [place] [address] Dr. Erin Bay SPECIMEN DESCRIPTION Comment Normal [facility] Comment on above: Result Comment: Rece ived is 90ml of yellow, clear, preserved urine. Performed By: #### F ISHUV #### [facility] [address] [place] [address] Dr. Erin Bay Specimen type Nom (Spec) Comment Normal [facility] Comment on above: Result Comment: Unsp ecified Collection Method Performed By: #### F ISHUV #### [facility] [address] [place] [address] Dr. Erin Bay Encounters Encounter Date Encounter Type Care Provider Facility Start: 02-07-2024 End: 02-07-2024 ambulatory PIETRO COWART Not Available Start: 08-31-2023 End: 08-31-2023 ambulatory PIETRO COWART Not Available Start: 04-28-2021 End: 04-29-[address] TALHA NOVA Facility:H1 Start: 02-18-[address] TALHA NOVA [facility] ity:H1 Start: 11-06-2020 End: 11-07-[address] ACEVES LISTED REQUEST Facility:H1 Start: 10-06-2020 End: 10-07-[address] NONE LISTED REQUEST Facility:H1 Payers Date Payer Category Payer Self-pay 1958 Unknown [id number] 1935 Unknown [id number] 2.16.84 [id number] 1935 Unknown [id number] 2.16.84 [id number] 1936 Unknown [id number] 2.16.84 [id number] 1936 Unknown [id number] 2.16.840 .[id number] Unknown [id number] 2.16.84 [id number] Unknown [id number] 2.16.84 [id number] Summary Purpose Family History No Family History [...] DATE CREATED AUTHOR AUTHOR'S BRYAN SHEPARD 02/09/2024 [facility] Specialists EPIC FOR RECORDS PERTAINING [...] BE BASED ON THE PRIMARY CLINICAL RECORDS. [facility] [employer] provides no warranty or guarantee of the accuracy or completeness of information in this document.
== END 2024-10-31 12:58 | disposition home or self-care (01) ==
LOC: CT 12:57
PROVIDERS: PCP Family Medicine; Visit Provider Family Medicine Hospice and Palliative Medicine
DX: R06.02 Shortness of breath (principal); I51.7 Cardiomegaly
CPT/HCPCS: 71260; Q9967

== ENCOUNTER 2024-11-08 17:33 | Outpatient (REF) | payer MEDICARE, SELFPAY ==
--- OUTSIDE RECORDS SUMMARY | 2024-11-08 17:38 | XMS_ITS | CCD ---
Author Organization [facility] Care Team Providers Care Clipper Machine Operator Name Role Phone AVTAR, DR PALENCIA Admitting Unavailable VALONE, DR PALENICA Attending Unavailable VALONE, DR PALENCIA Primary Care Unavailable VALONE, DR PALENCIA Consulting Unavailable REQUEST, DR ACEVES LISTED Admitting Unavaila ble REQUEST, DR ACEVES LISTED Attending Unavaila MAKENNA Almanza Consulting Unavailable REQUEST, DR ACEVES LISTED Admitting Unavaila ble REQUEST, DR ACEVES LISTED Attending Unavaila MAKENNA Almanza Consulting Unavailable VALONE, DR PAELNCIA Admitting Unavailable VALONE, DR PALENCIA Attending Unavailable PIETRO COWART Attending Unavailable RUSPIETRO COBB Attending Unavailable Allergies Allergy Classification Reported Allergen(s) Allergy Type Date of Onset Reaction(s) Facility (2 sources) Penicillins Drug allergy (disorder) 05-02-2014 [facility] Repository (2 sources) Sulfonamides (Antibiotic) Drug allergy (disorder) 05-02-2014 [facility] Repository Problems Problem Classification Problem Date Documented Da te Episodic/Chronic Genitourinary symptoms and ill-defined conditions (4 sources) Other microscopic hematuria; Translations: [OTHER MICROSCOPIC HEMATURIA] Onset: 04-28-2021 Episodic Results Test Name Value Interpretation Reference Range Dolly Carlson 06-04-2021 BLADDER CANCER FISH FINDINGS Comment Normal [facility] Comment on above: Result Comment: Nega tive UroVysion Result Fluorescence in situ hybridization (FISH) of cells recovered from urine was performed using the [employer] UroVysion Kit. A minimum of twenty-five cells was examined, and an abnormal signal pattern was not detected, indicating a NEGATIVE result. The performance characteristics of this test have been validated by [employer]. A positive result is the detection of four or more cells with greater than two signals for at least two chromosomes (3, and/or 7, and/or 17) and/or twelve or more cells with no signal for chromosome 9. Probes: 3cen(D3Z1), 7cen(D7Z1), 9p21(p16), 17cen(D17Z1) Performed By: #### F ISHUV #### [facility] [address] [place] [address] Dr. Erin Bay CLINICAL DATA Comment Normal [facility] Comment on above: Result Comment: No c linical data specified Performed By: #### F ISHUV #### [facility] [address] [place] [address] Dr. Erin Bay CPT CODES Comment Normal [facility] Comment on above: Result Comment: 8812 0 Performed By: #### F ISHUV #### [facility] [address] [place] [address] Dr. Erin Bay ELECTRONICALLY SIGNED Comment Normal [facility] Comment on above: Result Comment: Ramon Hampton M.D. Performed By: #### F ISHUV #### [facility] [address] [place] [address] Dr. Erin Bay SPECIMEN DESCRIPTION Comment Normal [facility] Comment on above: Result Comment: Rece ived is 90ml of yellow, clear, preserved urine. Performed By: #### F ISHUV #### [facility] [address] [place] [address] Dr. Erin Bay Specimen type Nom (Spec) Comment Normal [facility] Comment on above: Result Comment: Unsp ecified Collection Method Performed By: #### F ISHUV #### [facility] [address] [place] [address] Dr. Erin Bay Encounters Encounter Date Encounter Type Care Provider Facility Start: 02-07-2024 End: 02-07-2024 ambulatory PIETRO COWART Not Available Start: 08-31-2023 End: 08-31-2023 ambulatory PIETRO COWART Not Available Start: 04-28-2021 End: 04-29-[address] TALHA NOVA Facility:H1 Start: 02-18-[address] TALHA NOVA [facility] ity:H1 Start: 11-06-2020 End: 11-07-[address] ACEVES LISTED REQUEST Facility:H1 Start: 10-06-2020 End: 10-07-[address] NONE LISTED REQUEST Facility:H1 Payers Date Payer Category Payer Self-pay 1958 Unknown [id number] 1935 Unknown [id number] 2.16.84 [id number] 1935 Unknown [id number] 2.16.84 [id number] 1935 Unknown [id number] 2.16.84 [id number] 1936 Unknown [id number] 2.16.840 .[id number] Unknown [id number] 2.16.84 [id number] Unknown [id number] 2.16.84 [id number] Summary Purpose Family History No Family History Records FoundNo Family History Records Found Advance Directives No Advanced Directives Records FoundNo Advanced Directives Records Found Additional Source Comments (unrecognized sect ion and content) No Status Records FoundNo Status Records Found INFORMATION SOURCE (unrecogn ized section and content) DATE CREATED AUTHOR 06/13/2021 [facility] DATE CREATED AUTHOR AUTHOR'S BRYAN SHEPARD 02/09/2024 [facility] dical Specialists EPIC FOR RECORDS PERTAINING TO [...] BE BASED ON THE PRIMARY CLINICAL RECORDS. [facility] [employer] provides no warranty or guarantee of the accuracy or completeness of information in this document.
[2024-11-08 18:57] LABS: Alanine Aminotransferase 23 U/L (16-63); Albumin Globulin Ratio 1.2; Albumin Level 3.5 g/dL (3.4-5.0); Alkaline Phosphatase 58 U/L (46-116); Anion Gap 11.7; Aspartate Amino Transferase 11 U/L (15-37); BUN Creatinine Ratio 28.6; Bilirubin Total 0.3 mg/dL (0.2-1.0); Calcium 8.8 mg/dL (8.5-10.1); Carbon Dioxide 29.7 mmol/L (21.0-32.0); Chloride 95 mmol/L (98-107); Chol HDL Ratio 2.2; Cholesterol 145 mg/dL (<=200); Estimated GFR (African America >60 (>=60 mL/min/1.73m^2); Estimated GFR (Non-African Ame >60 (>=60 mL/min/1.73m^2); Glucose 241 mg/dL (74-106); HDL Cholesterol 67 mg/dL (40-60); Potassium 5.4 mmol/L (3.5-5.1); Sodium 131 mmol/L (136-145); Total Protein 6.5 g/dL (6.4-8.2); Triglycerides 223 mg/dL (<=150); VLDL CHOLESTEROL 44.6 mg/dL
== END 2024-11-08 17:34 | disposition home or self-care (01) ==
LOC: LAB 17:33
PROVIDERS: PCP Family Medicine
DX: I70.202 Unspecified atherosclerosis of native arteries of extremities, left leg (principal)
CPT/HCPCS: 36415; 80053; 80061